=== PATIENT | female | born 1940 | race Caucasian/White ===

== ENCOUNTER → 2025-06-10 09:51 | Outpatient (REF) | payer MEDICARE, OTHER, SELFPAY ==
[2025-06-10 10:51] LABS: Hematocrit 37.2 % (37.0-47.0); Hemoglobin 12.1 g/dL (12.0-16.0); Mean Corp Hgb Conc. 32.5 g/dL (33.0-37.0); Mean Corpuscular Volume 88.6 fL (81.0-99.0); Nucleated Red Blood Cells % 0 %; Platelet Count 231 10^3/uL (130-400); Red Cell Dist. Width 14.3 % (11.5-14.5)
[2025-06-10 10:57] LABS: INR 1.82; PT 21.5 Sec (11.4-14.6)
[2025-06-10 11:39] LABS: ALT (SGPT) 11 U/L (0-35); AST (SGOT) 19 U/L (14-36); Albumin 4.2 g/dl (3.5-5.0); Alkaline Phosphatase 63 U/L (38-126); Blood Urea Nitrogen 20 mg/dl (7-17); Calcium 9.4 mg/dl (8.4-10.2); Carbon Dioxide 28 mmol/L (22-30); Chloride 107 mmol/L (98-107); Glucose 89 mg/dl (70-99); Magnesium 2.0 mg/dl (1.6-2.3); Potassium 4.5 mmol/L (3.5-5.1); Sodium 141 mmol/L (135-145); Total Protein 6.9 g/dl (6.3-8.2); eGFR 56.25
== END ==
LOC: SDSPAT 09:51
PROVIDERS: ATTENDING PHYSICIAN Internal Medicine Cardiovascular Disease; FAMILY PHYSICIAN Internal Medicine; OTHER PHYSICIAN Internal Medicine Cardiovascular Disease
DX: I48.19 Other persistent atrial fibrillation (principal)
CPT/HCPCS: 36415; 80053; 83735; 85025; 85610; 86850; 86900; 86901; 93005

== ENCOUNTER 2025-06-19 05:51 | Day surgery (SDC) | payer MEDICARE, OTHER, SELFPAY ==
[2025-06-10 10:22] VITALS: BMI 34.9
--- NOTE | 2025-06-10 12:08 | HPS.HSE ---
Family Physician
-
Family Physician: INTERVIEWE UNKNOWN - PT NOT
Chief Complaint
-
Paroxysmal atrial fibrillation.
History of Present Illness
The patient is an 84 year old female presenting today for paroxysmal atrial fibrillation. She does report exertional shortness of breath and palpitations associated with this diagnosis. She previously underwent pulmonary vein isolation in
June 2020 and 6 cardioversions for her arrhythmia. Her last cardioversion reportedly occurred in April 2025. She is on current pharmacological therapy with Metoprolol Succinate and Amiodarone. Unfortunately, she does report fatigue, balance
difficulties, and chronic constipation with her current Amiodarone. She could not previously tolerate Multaq and Sotalol due to nausea. She does report compliance with Xarelto for oral anticoagulation. She is interested in pursuing pulmonary vein
isolation for further arrhythmia management as she hopes to come off Amiodarone altogether one day. She denies any complaints today such as chest pain and shortness of breath at rest, nausea, vomiting, diarrhea, lightheadedness, dizziness, cough,
sore throat, or fever.
Medical History
Past Medical History
Past Medical History: Reports Other
Additional Past Medical History:
1. Paroxysmal atrial fibrillation, status post cardioversion x6 and pulmonary vein isolation 06/2020; pharmacological therapy with Metoprolol Succinate and Amiodarone, oral anticoagulation with Xarelto.
2. Hypertension.
3. Chronic diastolic heart failure, preserved ejection fraction.
4. Moderate-severe tricuspid regurgitation.
5. Childhood asthma.
6. Recurrent diverticulitis.
7. Small bowel obstruction secondary to hernia, status post surgical repair 09/2020.
8. Vitamin D deficiency.
9. Obesity, BMI 34.9.
10. Remote history of infrequent tobacco abuse.
Past Surgical History: Reports Other
Additional Past Surgical History:
1. Pulmonary vein isolation.
2. Multiple GER-guided cardioversions.
3. Hysterectomy.
4. Right knee arthroscopy.
5. Hernia repair.
6. Colonoscopy.
Social History
Tobacco: Former Smoker (She reports infrequent cigarette smoking in her teenage years. )
Alcohol: None
Living: Alone (in a 3 story home. )
Family History
Family History: Not pertinent
Allergies / Home Medications
Allergy/Medication List:
Home medications:
1. Amiodarone 100 mg p.o. daily.
2. Cholecalciferol 1250 mcg p.o. on Wednesdays.
3. Furosemide 20 mg p.o. Mondays, Wednesdays, and Fridays.
4. Metoprolol Succinate 50 mg p.o. daily.
5. Xarelto 20 mg p.o. every evening.
Allergies: No known drug allergies.
Adverse drug reactions: Multaq and Sotalol (nausea).
Review of Systems
-
A 12 point ROS was completed and negative except as noted: Yes
Physical Exam
Vital Signs
Blood pressure 143/71. Heart rate 62. Respirations 18. Pulse ox 97% on room air.
Height 5 feet, 3 inches. Weight 89.4 kg. BMI 34.9.
Physical Exam
General: Well Developed, Well Nourished and No Apparent Distress
HEENT: NormoCephalic, Moist mucous membranes, Atraumatic and PERRLA
Respiratory: Clear
Cardiac: Regular Rhythm
GI: Soft, Non Tender, Non Distended and Other (Obese. )
Musculoskeletal: No Edema and Normal Gait & Station
Skin: Warm and Dry
Neuro: AO x 3 and Nonfocal/grossly intact
Laboratory Results
-
DIAGNOSTIC STUDIES as of 06/10/2025: White blood cell count 6.0. Hemoglobin 12.1. Platelet count 231,000. PT 21.5. INR 1.82. Sodium 141. Potassium 4.5. BUN 20. Creatinine 1.0. Glucose 89. Calcium 9.4. Magnesium 2.0. AST 19. ALT 11. Albumin 4.2. Type
and screen A positive.
EKG 06/10/2025: Normal sinus rhythm with sinus arrhythmia. Cannot rule out anterior infarct, age undetermined.
Echocardiogram 08/12/2024: Normal LV function. Ejection fraction is 55 to 60%. Low normal RV function. Moderate to moderately severe tricuspid regurgitation with mild increase in the right ventricular systolic function. Moderate right atrial
enlargement and the left atrium is top normal in size.
Impression/Plan
-
IMPRESSION/PLAN:
1. Paroxysmal atrial fibrillation: The patient is in need of pulmonary vein isolation with Dr. Duke Jacobo on 06/19/2025. The benefits and risks of the procedure have been explained to the patient. The patient understands these risks and
wishes to proceed. She will not be required to undergo a pre-procedural transesophageal echocardiogram as she has been compliant with her home oral anticoagulation. She will continue her Xarelto uninterrupted prior to her procedure. She was advised
to hold her Amiodarone 1 week prior. She will likely discontinue this medication altogether after her procedure. She will take no medications the morning of her ablation.
[2025-06-19] VITALS (10 sets, daily range): BP systolic 103–178; BP diastolic 57–98; BMI 33.8
--- NOTE | 2025-06-19 08:03 | ITS.CL.ABL ---
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
Ablation
Procedure Report:
ELECTROPHYSIOLOGIC STUDY AND POSSIBLE ABLATION
DATE: June 19, 2025
Primary Care Provider: DR Nai Arroyo
Primary Pest Controller: DR Osbaldo Valencia
INDICATION:
Symptomatic Atrial Fibrillation.
Persistent
HISTORY: See H and P.
Symptomatic AF, poorly controlled with attempted medical therapy
She has a longstanding history of paroxysmal symptomatic atrial fibrillation dating back to 2015.� She underwent catheter ablation for atrial fibrillation on June 22, 2020 (cryoballoon PVI).� She has developed recurrent atrial fibrillation in
July 2024 and required cardioversion August 2024.
She once again developed symptomatic atrial fibrillation in January 2025 and required cardioversion February 2025.
She was also started on amiodarone.
Echocardiogram from August 12, 2024 finds LVEF of 55 to 60%, RV is mildly dilated and there is low normal systolic function of the right ventricle, there is moderate to severe tricuspid regurgitation and moderate right atrial enlargement with
borderline left atrial enlargement.
Prior antiarrhythmic drug therapy included sotalol, propafenone,�and dronedarone which she poorly tolerated.
Additional medical history includes she also has a history of valvular heart disease (moderate to severe TR), stress test 2019 with postive EKG and normal scans,��borderline obesity, essential hypertension, recurrent diverticulitis, recent small
bowel obstruction secondary to hernia status post surgical repair 10/07.
HAS-BLED: 1
Age
CHADSVASc: 4
HTN
Age
F Gender
PRESENTING RHYTHM: SR
HISTORY: See H and P.
Symptomatic AF, poorly controlled with attempted medical therapy.
ANTIARRHYTHMIC DRUG: amiodarone discontinued 7 days prior
ANTICOAGULATION: Rivaroxaban 20 mg daily
'TIME-OUT': called and confirmed.
SEDATION/ANESTHESIA: provided via the anesthesia department using general anesthesia.
PROCEDURE:
Ultrasound Guidance with real-time visualization of needle insertion and vessel patency performed by la for femoral venous Vascular Access.
Under real-time US guidance, the needle was advanced with negative pressure into the vein. The needle was seen entering the vessel lumen with a good return of dark red flow, the syringe was removed, non-pulsatile, dark red blood low was noted and
the wire was passed without difficulty, then the needle was removed. US confirmed the wire was in the vein, not going into an artery,
Images were taken and saved for the patient's permanent record. Imaging findings typical femoral venous anatomy. Direct visualization of needle puncture into the femoral vein was observed and recorded.
A decapolar CS catheter was placed within the CS for mapping and pacing.
The intracardiac ultrasound catheter was positioned in the RA for continuous intracardiac ultrasound imaging.
Heparin bolus and infusion to target ACT at 300 -350 seconds was administered. Transseptal puncture was performed. This entailed advancing a sheath with dilator into the superior vena cava and withdrawing both (monitoring intracardiac ultrasound,
fluoroscopy and tip pressure) with the tip oriented toward the atrial septum. The fossa ovalis was engaged (indicated by sudden displacement of the sheath tip as well as tenting of the fossa seen on intracardiac ultrasound).
Transseptal puncture was performed. Left atrial catheter position was confirmed by echocardiographic imaging, pressure monitoring (LA mean pressure 3 mm Hg) and fluoroscopy. The sheath was advanced over the dilator and positioned in the left
atrium.
The SensingStripa multipolar mapping/ablation Sphere-9 catheter was positioned through the transseptal sheath for high density mapping.
Geometry and voltage mapping was performed using the SensingStripa mapping system for three-dimensional electroanatomical mapping.
Catheter positioning was guided and confirmed using both I.C.E. and fluoroscopy.
High density electroanatomical three-dimensional mapping demonstrated five PVs: LSPV, LIPV, RSPV, RMPV, RIPV.
There is electrical reconnection in the left inferior pulmonary vein towards its septal quadrant.
Delivery of pulse electric field energy to this area electrically isolated the left inferior pulmonary vein.
Ablation strategy included PVI as well as mapping for extra PV contributors to atrial fibrillation which would also be targeted if present.
After accomplishing pulmonary venous isolation, mapping identified additional areas likely to be extra PV contributors to atrial fibrillation. These areas demonstrated patchy low voltage as well as complex fractionated electrograms. These areas can
be sites for the formation of rotors which can drive and maintain atrial fibrillation. These areas are known to be significant contributors to initiation and perpetuation of atrial fibrillation.
Additional energy applications/additional ablation sets targeted extra PV contributors to atrial fibrillation.
Targets for additional PFA ablation included:
LA posterior wall targeted with pulsed electric field energy isolating the posterior wall of the left atrium
In addition to ablation of the posterior wall, additional targets were addressed:
LA inferior floor
The ridge of tissue between the left atrial appendage and the left sided pulmonary veins (Ligament of Michael )
These areas were ablated using pulsed electric field energy eliminating the extra PV contributors to atrial fibrillation.
Post ablation mapping finds entrance and exit block at each of the pulmonary veins, the LA posterior wall and at the additional lines at Inferior/floor of the LA and the Ligament of Marshal rendering the sites no longer able to contribute to atrial
fibrillation.
Programmed electrostimulation including burst atrial pacing as well the delivery of decremental extrastimuli was able to induce a slightly irregular left atrial tachycardia at cycle length 330 to 350 ms.
High density activation mapping identified focal right atrial tachycardia arising between the annulus of the mitral valve at approximately 2:00 and the ostium of the left atrial appendage. Delivery of pulsed electric field energy to this area
immediately slowed the tachycardia additional deliveries in and around this area terminated the tachycardia. In an effort to avoid an area/isthmus of slow conduction, ablation was extended from the ostium of the left atrial appendage down to the
mitral valve annulus and connecting this up to the left atrial roofline. Differential pacing demonstrated block across this line.
Programmed electrical stimulation was then repeated and no further sustained arrhythmias could be induced.
I.C.E. :
Pre-Ablation Post-Ablation
LVEF: 55% 55%
WMA: None none
Pericardial effusion: None none
LA Pressure 3 4
COMPLICATIONS:
None
SUMMARY:
- Mapping and ablation to isolate the PVs resulting in electrical isolation of the pulmonary veins
- Additional AF ablation sets X 3 after PVI (LA posterior wall, Inf/floor of the LA posterior wall, ligament of Michael) resulting in elimination of the targeted extra PV contributors to atrial fibrillation
- Mapping and ablation of second tachycardia (focal left atrial tachycardia) rendering it noninducible with programmed electrical stimulation
- 3-D Electroanatomical Mapping
- Intracardiac Ultrasound
- Ultrasound guidance for vascular access
Post ablation, I discussed today's findings and results with the patient's , John.
RECOMMENDATIONS:
- Observe in monitored bed.
- Maintain oral anticoagulation. Given elevated [id number] score of 4, would maintain lifelong oral anticoagulation.
- Discontinue amiodarone
- Continue cardiovascular care with Dr Osbaldo Valencia as scheduled 10/15/25
Copy to:
Primary Care Provider: DR Nai Arroyo
Primary Pest Controller: DR Osbaldo Valencia
[2025-06-19 09:28] LABS: ACT-LR - POC 327 Seconds (116-155)
[2025-06-19 09:38] LABS: ACT-LR - POC > 397 Seconds (116-155)
[2025-06-19] MEDS: ANESTHETIC LOZENGE 1 LOZENGE PO (10:33)
--- NOTE | 2025-06-19 14:22 | W.PN.UPDATE ---
Update Note
Progress Note Update
84 yo WF s/p PVI (same day). She denies cp, sob, eliazar diet, voiding, R fem site c/d/i no HT< EKG SR 1 deg AVB, a few episodes of PAT. She will resume Xarelto tonight. She will continue metoprolol. Activity restrictions reviewed. She will f/u Dr. Valencia
in 3 mo. She is for d/c home after 230p.
== END 2025-06-19 14:30 | disposition home or self-care (01) ==
LOC: CATH 05:51
PROVIDERS: ATTENDING PHYSICIAN Internal Medicine Cardiovascular Disease; FAMILY PHYSICIAN Internal Medicine; OTHER PHYSICIAN Internal Medicine Cardiovascular Disease
DX: I48.0 Paroxysmal atrial fibrillation (principal); K59.09 Other constipation; I50.32 Chronic diastolic (congestive) heart failure; I07.1 Rheumatic tricuspid insufficiency; I11.0 Hypertensive heart disease with heart failure; E66.9 Obesity, unspecified; Z68.34 Body mass index [BMI] 34.0-34.9, adult; Z79.01 Long term (current) use of anticoagulants; Z79.899 Other long term (current) drug therapy; Z87.891 Personal history of nicotine dependence
CPT/HCPCS: C1733; 85347; 93005; 93655; 93656; 93657; C1730; C1766; C1892; C1894

== ENCOUNTER 2025-06-19 22:36 | Emergency (ER) | payer MEDICARE, OTHER, SELFPAY ==
[2025-06-19 22:38] VITALS: BP 142/68
[2025-06-20 00:26] VITALS: BP 119/71
[2025-06-20 00:27] VITALS: BMI 35.8
--- NOTE | 2025-06-20 00:31 | ED.GENMED ---
History of Present Illness
General
Chief Complaint: Skin Problem
Source: patient
Time Seen by Provider: 06/20/25 00:14
History of Present Illness
History of Present Illness:
Very pleasant 84-year-old female presents to the emergency room complaining of bleeding from her right groin. Patient had an ablation performed early Sunday morning, June 19, here at [facility] by Dr. Duke Jacobo. The procedure
itself went well. Postoperatively she recalls one of the staff addressing her right groin. They put a stitch in her right groin for some period of time and then removed it. It and applied a dressing and told her to remove the dressing 24 hours
later after she has a shower. This evening while in her kitchen she began feeling moisture and dripping down her right leg. She observed that the dressing had become quite bloody prompting her to come to the emergency room for further evaluation.
Patient did take Xarelto with dinner. She denies any significant pain in the right groin. No other complaints.
Phy Exam
Physical Exam
Physical Exam:
General: Awake, Alert, Oriented X3. No acute distress.
Vitals: unremarkable
Head: Atraumatic
Eyes: Pupils equal, EOMI
Throat: Airway intact, no exudates
Neck: Trachea midline
Lungs: Clear and equal b/l
Heart: Regular rate, no murmurs
Abd: Soft, Nontender, No pulsatile mass
Neuro: Nonfocal
Skin: Warm, dry, no rash
Extremities: Right groin dressing saturated with blood. Once removed it was a small amount of blood emanating from the puncture site in the right groin. There is some fullness beneath this puncture site. The fullness is not significantly
pulsatile though I do feel a femoral pulse in that area. Remainder of the right lower extremity is normal.
Course
Orders/Labs/Results
Orders:
Orders
06/20/25 00:25
US Groin (vascular exam) RT Urgent
Comment:
Reason For Exam: bleeding, swelling s/p ablation
06/20/25 00:44
Basic Metabolic Panel Urgent
Complete Blood Count/With Diff Urgent
Abnormal Lab Results
06/20/25
00:44
RBC 3.70 L 10^6/uL
(4.20-5.40)
Hgb 10.6 L g/dL
(12.0-16.0)
Hct 32.5 L %
(37.0-47.0)
MCHC 32.6 L g/dL
(33.0-37.0)
RDW 14.6 H %
(11.5-14.5)
Absolute Neuts (auto) 8.9 H 10^3/uL
(1.4-6.5)
Absolute Lymphs (auto) 0.9 L 10^3/uL
(1.2-3.4)
Neutrophils % 85.8 H %
(42.2-75.2)
Lymphocytes % 8.3 L %
(20.5-51.1)
Chloride 111 H mmol/L
(98-107)
BUN 22 H mg/dl
(7-17)
Glucose 134 H mg/dl
(70-99)
06/20/25 00:44
06/20/25 00:44
Vital Signs
Initial and Last Documented VS:
Initial Vital Signs
Temp Pulse Resp BP Pulse Ox
97.8 F 79 18 142/68 97
06/19/25 22:38 06/19/25 22:38 06/19/25 22:38 06/19/25 22:38 06/19/25 22:38
Last Documented Vital Signs
Temp Pulse Resp BP Pulse Ox
97.8 F 69 21 127/69 95
06/19/25 22:38 06/20/25 03:00 06/20/25 03:00 06/20/25 03:00 06/20/25 03:00
Procedures
Other
Indication for procedure:: Bleeding from puncture sites
Procedure completed by: Myself
Consent form signed: No
Additional Procedure:
[place] in the right groin prepped with Betadine. 1% lidocaine with epi infiltrated into the 2 larger puncture wounds that are oozing. One 4-0 nylon simple interrupted stitch placed in each puncture site with control bleeding.
MDM/Problems Addressed
Differential Diagnosis Includes:
Pseudoaneurysm, bleeding from skin, postprocedural hematoma
MDM/Problems Addressed:
Patient presents with some oozing from the right groin. Ultrasound was obtained which shows no evidence of a pseudoaneurysm or any complication. Bleeding did not stop with direct pressure with my hand or with a sandbag. 2 sutures placed in the
large puncture sites with control of the bleeding. Follow-up with [facility] as an outpatient
*Pulse Oximetry
SaO2: 97
Oxygen Mode of Delivery: Room air
Patient hypoxic: no
*Critical Care Note
Total Time (30-74mins, 75-104mins- exclusive of procedures): Not Applicable
ED Attending Note
-
Portions of this chart may have been created with voice recognition software.� Occasional wrong word or��sound alike� substitutions may have occurred due to the inherent limitations of voice recognition software.
Discharge Plan
Departure
Patient Disposition: Home (Routine Discharge)
Date of Disposition: 06/20/25
Time of Disposition: 02:48
Patient with high blood pressure during this ER visit?: No
Condition: Good
Discharge Problem:
Postoperative bleeding from incision
Instructions: Wound Care (DC)
Prescriptions:
No Action
furosemide 20 MG tablet
20 mg PO MOWEFR
Xarelto 20 MG tablet
20 mg PO QPM
metoprolol succinate 50 mg Tablet Extended Release 24 Hr
50 mg PO DAILY
cholecalciferol (vitamin D3) 1,250 mcg (50,000 unit) Tablet
1,250 mcg PO WE
Referrals:
Nai Arroyo, [Family Provider, Internal Medicine]
Activity Restrictions/Additional Instructions:
follow up with Dr. Jacobo, call Sunday morning. The stitch we placed will need to be removed.
Interventions
Interventions:
*Risk Screen - Suicide Last Done: 06/20/25 00:15
*General Assessment Last Done: 06/19/25 22:38
*Neglect/Abuse Screening Last Done: 06/20/25 00:15
*ED- Fall Risk Assessment Last Done: 06/20/25 01:15
*ED COVID-19 Vaccine History Last Done: 06/20/25 00:15
*ED Influenza Vaccine History Last Done: 06/20/25 00:15
*Nursing Disposition Last Done: 06/20/25 03:31
ED-Skin Assessment Last Done: 06/20/25 02:20
Discharge Date and Time
Print Language: TAJIK
[2025-06-20 00:53] LABS: Hematocrit 32.5 % (37.0-47.0); Hemoglobin 10.6 g/dL (12.0-16.0); Mean Corp Hgb Conc. 32.6 g/dL (33.0-37.0); Mean Corpuscular Volume 87.8 fL (81.0-99.0); Nucleated Red Blood Cells % 0 %; Platelet Count 225 10^3/uL (130-400); Red Cell Dist. Width 14.6 % (11.5-14.5)
[2025-06-20 01:00] VITALS: BP 101/65
[2025-06-20 01:26] LABS: Blood Urea Nitrogen 22 mg/dl (7-17); Calcium 8.8 mg/dl (8.4-10.2); Carbon Dioxide 25 mmol/L (22-30); Chloride 111 mmol/L (98-107); Estimated Creatinine Clearance 56 ml/min; Glucose 134 mg/dl (70-99); Potassium 4.3 mmol/L (3.5-5.1); Sodium 142 mmol/L (135-145); eGFR > 60.00
[2025-06-20 01:48] VITALS: BP 135/78
[2025-06-20 02:00] VITALS: BP 124/65
[2025-06-20 03:00] VITALS: BP 127/69
== END 2025-06-20 03:39 | disposition home or self-care (01) ==
LOC: EMR 22:36
PROVIDERS: EMERGENCY PHYSICIAN Emergency Medicine; FAMILY PHYSICIAN Internal Medicine; REFERRING PHYSICIAN Internal Medicine Cardiovascular Disease
DX: L76.22 Postprocedural hemorrhage of skin and subcutaneous tissue following other procedure (principal); Y92.000 Kitchen of unspecified non-institutional (private) residence as the place of occurrence of the external cause; Z98.890 Other specified postprocedural states
CPT/HCPCS: 99284; 80048; 85025; 93926